=== PATIENT | female | born 1990 | race Caucasian/White ===

== ENCOUNTER → 2018-03-20 22:55 | Observation (INO) ==
[2018-03-20 22:09] LABS: Bilirubin,Urine Negative (Negative); Blood,Urine Large (Negative); Clarity,Urine Cloudy (Clear); Color,Urine Yellow (Yellow); Glucose,Urine (UA) Normal (Normal); Ketones,Urine 15 mg/dL (Negative); Leukocyte Esterase,Urine Trace (Negative); Nitrite,Urine Negative (Negative); PH,Urine 6.5 pH Units (5.0-8.0); Protein,Urine Negative (Neg-Trace); Specific Gravity,Urine 1.019 (1.010-1.025); Urobilinogen,Urine Normal (Normal)
[2018-03-20 22:10] LABS: Bacteria,Urine None Seen per hpf (None-Few); Hyaline Casts,Urine None Seen per lpf (None-Few); RBC,Urine TNTC per hpf (0-3); Squamous Epithelial Cell,Urine Many per lpf (None-Few)
[2018-03-20 22:21] LABS: Amphetamine Screen,Urine Negative ng/mL (Cutoff=1000); Barbiturate Screen,Urine Negative ng/mL (Cutoff=200); Benzodiazepines Screen,Urine Negative ng/mL (Cutoff=200); Cannabinoid Screen,Urine Positive ng/mL (Cutoff = 50); Cocaine Screen,Urine Negative ng/mL (Cutoff= 300); Opiate Screen,Urine Negative ng/mL (Cutoff=300); Phencyclidine Screen,Urine Negative ng/mL (Cutoff=25)
--- NOTE | 2018-03-20 22:52 | OB/GYN Progress Note ---
Date of Encounter: 03/20/18 Time of Encounter: 22:48 - Assessment and Plan (1) 26 weeks gestation of Current Visit: Yes Status: Acute Urine - normal UDS + marijuana Declined vaginal exam tracing appropriate for gestation Discharge home with PTL/ Bleeding precautions Follow up with regular OB provider within 7 days and PRN. (2) Vaginal spotting Current Visit: Yes Status: Acute Subjective - Subjective Principal diagnosis: Vaginal bleeding Interval history: Ms Lr is here with c/o vaginal spotting after intercourse. She states she has had no complications with this . She states she just wanted to make sure her baby was ok. She declines the vaginal exam stating she's bleeding because of the intercourse. She sees Dr Salvador at [place]. Antepartum ROS: new complaints, vaginal bleeding, movement normal, no loss of fluid, no contractions Objective - Exam FHR: auscultation normal, category 1 (baseline 150; reactive) Abdomen: Present: normal appearance, soft, gravid. Absent: tenderness Uterus: Present: normal. Absent: firm, bogginess, tenderness Comments: Declined pelvic / vaginal exam. - Labs Labs: Abnormal lab results Urine Clarity Cloudy (Clear) A 03/20/18 22:00 Urine Ketones 15 mg/dL (Negative) H 03/20/18 22:00 Urine Blood Large (Negative) H 03/20/18 22:00 Ur Leukocyte Esterase Trace (Negative) H 03/20/18 22:00 Urine Microscopic RBC TNTC per hpf (0-3) H 03/20/18 22:00 Urine Microscopic WBC 5-15 per hpf (0-3) H 03/20/18 22:00 Ur Squamous Epith Cells Many per lpf (None-Few) H 03/20/18 22:00 Ur Culture Indicated? NO. (NO) A 03/20/18 22:00 U Marijuana (THC) Screen Positive ng/mL (Cutoff = 50) H 03/20/18 22:00
== END | disposition home or self-care (01) ==
LOC: 1NENULAB
PROVIDERS: ADMIT Obstetrics & Gynecology; ATTEND Obstetrics & Gynecology

== ENCOUNTER 2018-04-19 18:29 | Observation (INO) ==
[2018-04-19 19:15] LABS: Bilirubin,Urine Negative (Negative); Blood,Urine Large (Negative); Clarity,Urine Cloudy (Clear); Color,Urine Dark Yellow (Yellow); Glucose,Urine (UA) Normal (Normal); Ketones,Urine 40 mg/dL (Negative); Leukocyte Esterase,Urine Small (Negative); Nitrite,Urine Negative (Negative); Protein,Urine 30 mg/dL (Neg-Trace); Specific Gravity,Urine 1.024 (1.010-1.025); Urobilinogen,Urine Normal (Normal)
[2018-04-19 19:17] LABS: Bacteria,Urine Few per hpf (None-Few); Hyaline Casts,Urine None Seen per lpf (None-Few); RBC,Urine TNTC per hpf (0-3); Squamous Epithelial Cell,Urine Many per lpf (None-Few)
[2018-04-19] MEDS ORDERED: 0.9 % Sodium Chloride 1,000 ML IVC ONE (19:43)
[2018-04-19] MEDS ORDERED: *HR* Morphine 2 MG/ML SYRINGE IVP ONE (19:53)
[2018-04-19 19:59] LABS: Basophils % 0.2 %; Eosinophils % 0.2 %; Hematocrit 37.4 % (35.3-44.9); Hemoglobin 12.6 g/dL (11.5-15.4); Immature Granulocytes % 0.5 % (0-4); Lymphocytes # 0.6 K/mcL (0.6-4.6); Lymphocytes % 5.5 %; Mean Corpuscular HGB Conc 33.7 g/dL (31.6-35.5); Mean Corpuscular Hemoglobin 31.3 pg (28.0-33.3); Mean Corpuscular Volume 92.8 fL (83.0-100.0); Mean Platelet Volume 8.3 fL (9.4-12.4); Monocytes # 0.7 K/mcL (0.0-1.3); Monocytes % 6.8 %; Neutrophils # 8.8 K/mcL (1.6-8.9); Platelet Count 250 K/mcL (140-400); Red Blood Count 4.03 M/mcL (3.82-4.97); Red Cell Distribution Width 14.1 % (11.5-14.5); Segmented Neutrophils % 86.8 %
[2018-04-19] MEDS ORDERED: Prochlorperazine 10 MG/2 ML VIAL IVP ONE (20:00)
[2018-04-19 20:19] LABS: Alanine Aminotransferase 12 Units/L (7-52); Albumin 3.4 g/dL (3.5-5.7); Albumin/Globulin Ratio 1.1 (1.1-2.2); Alkaline Phosphatase 126 Units/L (34-104); Aspartate Amino Transferase 17 Units/L (13-39); BUN/Creatinine Ratio 9 (6-26); Bilirubin,Direct 0.1 mg/dL (0.0-0.2); Bilirubin,Indirect 0.4 mg/dL (0.0-1.2); Bilirubin,Total 0.5 mg/dL (0.3-1.0); Blood Urea Nitrogen 7 mg/dL (6-20); Calcium 8.7 mg/dL (8.6-10.3); Carbon Dioxide 20 mEq/L (23-29); Chloride 104 mEq/L (98-107); Glucose 98 mg/dL (70-105); Osmolality,Calculated 274 (280-300); Potassium 4.3 mEq/L (3.5-5.1); Sodium 133 mEq/L (136-145); Total Protein 6.4 g/dL (6.4-8.9); eGFR For African Americans > 60 (> 60); eGFR For Non-African Americans > 60 (> 60)
--- NOTE | 2018-04-19 21:25 | Emergency Department Note ---
Disposition Clinical Impression: Left flank pain Hydronephrosis Qualifiers: Hydronephrosis type: unspecified Qualified Code(s): N13.30 - Unspecified hydronephrosis Disposition: Still a Patient Condition: Fair Referrals: NONE,PCP [Primary Care Provider] - Abdominal Pain HPI - General Chief Complaint: ED Abdominal Pain Stated Complaint: , flank pain Time Seen by Provider: 04/19/18 18:34 Source: patient Mode of arrival: ambulatory Limitations: no limitations Nursing Notes Reviewed: Yes Vital Signs Reviewed: Yes - History of Present Illness HPI Narrative: 27 yo female with past medical history of kidney stones, BMI of 61.6, presents to the emergency department c/o acute flank pain that started 2-3 days ago and is worsening. It is located in her left flank and radiates anteriorly. She is having nausea and vomiting with anorexia and has not taken her temp at home. She denies gross blood in the urine. She denies abdominal pain, chest pain , shortness of breath or palpitations. Pain Scale: 9 - Related Data Previous Rx's Medication Instructions Recorded Vit Calc,Iron,Folic 1 each PO DAILY #90 tablet 10/24/17 [ Vitamins] Allergies Allergy/AdvReac Type Severity Reaction Status Date / Time lamotrigine [From Lamictal] Allergy Rash Verified 03/20/18 21:59 Constitutional: Denies: fever, weakness, weight change Eyes: Denies: eye pain, eye discharge, vision change ENT ED: Denies: ear pain, throat pain, dental pain, hearing loss, epistaxis, congestion, dysphagia Cardiovascular: Denies: chest pain, palpitations, dyspnea on exertion, edema, syncope Respiratory: Denies: cough, dyspnea, wheezes, hemoptysis, stridor Gastrointestinal: Reports: nausea, vomiting. Denies: abdominal pain, diarrhea, constipation, hematemesis, melena, hematochezia Genitourinary: Denies: dysuria, frequency, hematuria, discharge Integumentary: Denies: rash, abrasion, lesions Neurological: Reports: headache. Denies: weakness, numbness, paresthesias, confusion Abdominal Pain PMH - Past Medical History Medical history: Reports: asthma, kidney stones Female Surgical History: Reports: appendectomy, Tonsillectomy TELECOM FIELD TECHNICIAN history: Reports: no TELECOM FIELD TECHNICIAN history Psychiatric history: Reports: anxiety, bipolar, depression - Social History Smoking status: Current every day smoker Alcohol use: Reports: none Drug use: Reports: none Physical Exam - General Limitations: no limitations General appearance: alert - Head Head exam: atraumatic, normocephalic, normal inspection - Eye Eye exam: Present: normal appearance, PERRL, EOMI - ENT ENT exam: normal exam, normal oropharynx, mucous membranes moist - Neck Neck exam: Present: normal inspection, trachea midline - Chest Chest inspection: Present: normal inspection, symmetric chest wall rise - Respiratory Respiratory exam: Present: normal lung sounds bilaterally - Cardiovascular Cardiovascular exam: Present: regular rate, normal rhythm, normal heart sounds - Abdominal Exam Abdominal exam: Present: soft, Non-Tender. Absent: tenderness, distention, guarding, rebound, rigidity - Back Exam Back exam: Present: CVA tenderness (L) - Neurological Exam Neurological exam: Present: alert, oriented X3 Course Course Narrative: Pt seen and evaluated at bedside. She demonstrates significant discomfort due to her flank pain. She has significant CVA tenderness. She tells me that her current sx feel like prior episode of kidney stones Vital Signs Temperature 98.5 F 04/19/18 18:34 Pulse Rate 130 04/19/18 18:34 Respiratory Rate 18 04/19/18 18:34 Blood Pressure 127/91 04/19/18 18:34 O2 Sat by Pulse Oximetry 95 04/19/18 18:34 Temperature 0 F L 04/19/18 20:36 Pulse Rate 127 04/19/18 20:36 Respiratory Rate 16 04/19/18 20:36 Blood Pressure 141/82 04/19/18 20:36 O2 Sat by Pulse Oximetry 98 04/19/18 20:36 Oxygen Delivery Oxygen Delivery Room Air Abdominal Pain - [facility] Narrative Medical decision making narrative: Clinical picture concerning for nephrolithiasis, she is 30 weeks so we will take care to avoid modalities that may endanger the fetus. We will obtain an ultrasound of her kidney / ureter and provide her medication for nausea and pain . US shows hydronephrosis. We will contact OB service to request admission - Lab Data Lab results reviewed: Yes I reviewed the patient's lab results. Result diagrams: 04/19/18 19:02 04/19/18 19:02 Lab Results 04/19/18 04/19/18 04/19/18 Range/Units 18:56 19:02 19:02 WBC 10.2 (4.3-11.1) K/mcL RBC 4.03 (3.82-4.97) M/mcL Hgb 12.6 (11.5-15.4) g/dL Hct 37.4 (35.3-44.9) % MCV 92.8 (83.0-100.0) fL MCH 31.3 (28.0-33.3) pg MCHC 33.7 (31.6-35.5) g/dL RDW 14.1 (11.5-14.5) % Plt Count 250 (140-400) K/mcL MPV 8.3 L (9.4-12.4) fL Immature Gran % 0.5 (0-4) % Seg Neutrophils % 86.8 % Lymphocytes % 5.5 % Monocytes % 6.8 % Eosinophils % 0.2 % Basophils % 0.2 % Neutrophils # 8.8 (1.6-8.9) K/mcL Lymphocytes # 0.6 (0.6-4.6) K/mcL Monocytes # 0.7 (0.0-1.3) K/mcL Eosinophils # 0.0 (0.0-0.6) K/mcL Basophils # 0.0 (0.0-0.2) K/mcL Sodium 133 L (136-145) mEq/L Potassium 4.3 (3.5-5.1) mEq/L Chloride 104 (98-107) mEq/L Carbon Dioxide 20 L (23-29) mEq/L BUN 7 (6-20) mg/dL Creatinine 0.74 (0.60-1.20) mg/dL Est GFR ( Amer) > 60 (> 60) Est GFR (Non-Af Amer) > 60 (> 60) BUN/Creatinine Ratio 9 (6-26) Glucose 98 (70-105) mg/dL Calculated Osmolality 274 L (280-300) Calcium 8.7 (8.6-10.3) mg/dL Total Bilirubin 0.5 (0.3-1.0) mg/dL Direct Bilirubin 0.1 (0.0-0.2) mg/dL Indirect Bilirubin 0.4 (0.0-1.2) mg/dL AST 17 (13-39) Units/L ALT 12 (7-52) Units/L Alkaline Phosphatase 126 H (34-104) Units/L Serum Total Protein 6.4 (6.4-8.9) g/dL Albumin 3.4 L (3.5-5.7) g/dL Globulin 3.0 (2.4-3.5) g/dL Albumin/Globulin Ratio 1.1 (1.1-2.2) Urine Color Dark Yellow (Yellow) Urine Clarity Cloudy A (Clear) Urine pH 7.0 (5.0-8.0) pH Units Ur Specific [place] 1.024 (1.010-1.025) Urine Protein 30 H (Neg-Trace) mg/dL Urine Glucose (UA) Normal (Normal) mg/dL Urine Ketones 40 H (Negative) mg/dL Urine Blood Large H (Negative) Urine Nitrite Negative (Negative) Urine Bilirubin Negative (Negative) Urine Urobilinogen Normal (Normal) mg/dL Ur Leukocyte Esterase Small H (Negative) Urine Microscopic RBC TNTC H (0-3) per hpf Urine Microscopic WBC 5-15 H (0-3) per hpf Ur Squamous Epith Cells Many H (None-Few) per lpf Urine Bacteria Few (None-Few) per hpf Hyaline Casts None Seen (None-Few) per lpf Ur Culture Indicated? NO. A (NO) - Radiology Data Radiology results reviewed: Yes I reviewed the patient's radiology results.
[2018-04-19] MEDS ORDERED: cefTRIAXone 1,000 MG in Water for inj. (sterile) 20 ML 10 ML IVP ONE (22:01)
--- NOTE | 2018-04-19 22:14 | Emergency Department Note ---
Disposition Clinical Impression: Flank pain, acute, Left flank pain Hydronephrosis Qualifiers: Hydronephrosis type: unspecified Qualified Code(s): N13.30 - Unspecified hydronephrosis Disposition: Admitted As Inpatient Condition: Fair Referrals: NONE,PCP [Primary Care Provider] - Forms: ED Satisfaction Letter, Work/School Release Time of Disposition: 22:39 General Adult HPI - General Chief complaint: ED Abdominal Pain Stated complaint: , flank pain Time Seen by Provider: 04/19/18 18:34 Source: patient Mode of arrival: ambulatory Limitations: no limitations - History of Present Illness Pain Scale: 9 - Related Data Previous Rx's Medication Instructions Recorded Vit Calc,Iron,Folic 1 each PO DAILY #90 tablet 10/24/17 [ Vitamins] Allergies Allergy/AdvReac Type Severity Reaction Status Date / Time lamotrigine [From Lamictal] Allergy Rash Verified 03/20/18 21:59 Constitutional: Denies: fever, weakness, weight change Eyes: Denies: eye pain, eye discharge, vision change ENT ED: Denies: ear pain, throat pain, dental pain, hearing loss, epistaxis, congestion, dysphagia Cardiovascular: Denies: chest pain, palpitations, dyspnea on exertion, edema, syncope Respiratory: Denies: cough, dyspnea, wheezes, hemoptysis, stridor Gastrointestinal: Reports: nausea, vomiting. Denies: abdominal pain, diarrhea, constipation, hematemesis, melena, hematochezia Genitourinary: Denies: dysuria, frequency, hematuria, discharge Integumentary: Denies: rash, abrasion, lesions Neurological: Reports: headache. Denies: weakness, numbness, paresthesias, confusion Past Medical History - Past Medical History Medical history: Reports: asthma, kidney stones Surgical history: Reports: appendectomy, other Psychiatric history: Reports: anxiety, bipolar, depression CURRICULUM ADVISORY TEACHER history: Reports: no CURRICULUM ADVISORY TEACHER history - Social History Smoking Status: Current every day smoker Smokeless Tobacco Status: No Alcohol use: Reports: none Drug use: Reports: none Physical Exam - General Limitations: no limitations General appearance: alert Course Vital Signs Temperature 98.5 F 04/19/18 18:34 Pulse Rate 130 04/19/18 18:34 Respiratory Rate 18 04/19/18 18:34 Blood Pressure 127/91 04/19/18 18:34 O2 Sat by Pulse Oximetry 95 04/19/18 18:34 Temperature 0 F L 04/19/18 20:36 Pulse Rate 132 04/19/18 22:17 Respiratory Rate 20 04/19/18 22:17 Blood Pressure 143/90 04/19/18 22:17 O2 Sat by Pulse Oximetry 99 04/19/18 22:17 Oxygen Delivery Oxygen Delivery Room Air Medical Decision Making - Lab Data Result diagrams: 04/19/18 19:02 04/19/18 19:02 Lab Results 04/19/18 04/19/18 04/19/18 Range/Units 18:56 19:02 19:02 WBC 10.2 (4.3-11.1) K/mcL RBC 4.03 (3.82-4.97) M/mcL Hgb 12.6 (11.5-15.4) g/dL Hct 37.4 (35.3-44.9) % MCV 92.8 (83.0-100.0) fL MCH 31.3 (28.0-33.3) pg MCHC 33.7 (31.6-35.5) g/dL RDW 14.1 (11.5-14.5) % Plt Count 250 (140-400) K/mcL MPV 8.3 L (9.4-12.4) fL Immature Gran % 0.5 (0-4) % Seg Neutrophils % 86.8 % Lymphocytes % 5.5 % Monocytes % 6.8 % Eosinophils % 0.2 % Basophils % 0.2 % Neutrophils # 8.8 (1.6-8.9) K/mcL Lymphocytes # 0.6 (0.6-4.6) K/mcL Monocytes # 0.7 (0.0-1.3) K/mcL Eosinophils # 0.0 (0.0-0.6) K/mcL Basophils # 0.0 (0.0-0.2) K/mcL Sodium 133 L (136-145) mEq/L Potassium 4.3 (3.5-5.1) mEq/L Chloride 104 (98-107) mEq/L Carbon Dioxide 20 L (23-29) mEq/L BUN 7 (6-20) mg/dL Creatinine 0.74 (0.60-1.20) mg/dL Est GFR ( Amer) > 60 (> 60) Est GFR (Non-Af Amer) > 60 (> 60) BUN/Creatinine Ratio 9 (6-26) Glucose 98 (70-105) mg/dL Calculated Osmolality 274 L (280-300) Calcium 8.7 (8.6-10.3) mg/dL Total Bilirubin 0.5 (0.3-1.0) mg/dL Direct Bilirubin 0.1 (0.0-0.2) mg/dL Indirect Bilirubin 0.4 (0.0-1.2) mg/dL AST 17 (13-39) Units/L ALT 12 (7-52) Units/L Alkaline Phosphatase 126 H (34-104) Units/L Serum Total Protein 6.4 (6.4-8.9) g/dL Albumin 3.4 L (3.5-5.7) g/dL Globulin 3.0 (2.4-3.5) g/dL Albumin/Globulin Ratio 1.1 (1.1-2.2) Urine Color Dark Yellow (Yellow) Urine Clarity Cloudy A (Clear) Urine pH 7.0 (5.0-8.0) pH Units Ur Specific [place] 1.024 (1.010-1.025) Urine Protein 30 H (Neg-Trace) mg/dL Urine Glucose (UA) Normal (Normal) mg/dL Urine Ketones 40 H (Negative) mg/dL Urine Blood Large H (Negative) Urine Nitrite Negative (Negative) Urine Bilirubin Negative (Negative) Urine Urobilinogen Normal (Normal) mg/dL Ur Leukocyte Esterase Small H (Negative) Urine Microscopic RBC TNTC H (0-3) per hpf Urine Microscopic WBC 5-15 H (0-3) per hpf Ur Squamous Epith Cells Many H (None-Few) per lpf Urine Bacteria Few (None-Few) per hpf Hyaline Casts None Seen (None-Few) per lpf Ur Culture Indicated? NO. A (NO) Attestation Statement - Attestation Attestation: I examined this patient and my medical decision-making was reviewed with the Resident Physician. I agree with the documented findings, disposition and treatment plan as described except to the extent set forth below. 27-year-old female presented to the emergency room for left flank pain. She also complaining of left lower back pain. She states it radiates around to the left side of her abdomen. His been present for 5 days. Worse today. Urinalysis showed evidence of hematuria. Concerns with her being 30 weeks for possible kidney stone. We did an ultrasound which showed moderate left-sided hydronephrosis. They did not visualize any obvious stone. She denies any vaginal bleeding or discharge. Still awaiting the official OB ultrasound report. Patient will need to be admitted to OB and consult with urology. Her CURRICULUM ADVISORY TEACHER is at [facility] however she would like to be admitted here and they do not have any urology coverage at that facility. We will consult with OB. I started her on IV Rocephin. She has had no further vomiting after the Compazine and her pain is more under control with the morphine.
[2018-04-19] MEDS: Ringers Solution, Lactated 1,000 ML IVC SCH (23:48)
[2018-04-19] MEDS ORDERED: Ondansetron 4 MG/2 ML VIAL IVP PRN (23:54)
[2018-04-19] MEDS ORDERED: *HR* HYDROcodone/Acet 5/325 mg TABLET PO PRN (23:54)
[2018-04-19] MEDS ORDERED: Acetaminophen 325 MG TABLET PO PRN (23:54)
[2018-04-20] MEDS: Gentamicin 160 MG in 0.9 % Sodium Chloride 100 ML IVPB SCH ×3 (00:23→17:54)
--- NOTE | 2018-04-20 00:37 | OB/GYN History & Physical ---
Date of Encounter: 04/20/18 Time of Encounter: 00:31 Assessment and Plan (1) 30 weeks gestation of Current visit: Yes Status: Acute (2) Hydronephrosis Current visit: Yes Status: Acute Admit to observation Consult to urology Antibiotics as ordered Tylenol for fever Dr. Bae aware of POC and agrees Qualifiers: Hydronephrosis type: unspecified Qualified Code(s): N13.30 - Unspecified hydronephrosis History of Present Illness Chief complaint: moderate hydronephrosis HPI: Ms. Lr is a 27 year old female at 30 weeks 5 days gestation with an estimated date of of 06/22/2018. She reports a 5 day history of left flank pain. She endorses good movement and denies contractions, vaginal bleeding, leakage of fluid. She denies dysuria. She reports her blood pressures have been stable throughout her . She sees Dr. Salvador for OB care and records are pending. Her has been complicated by morbid obesity. Past Med Surg Social Fam HX - Past Medical History Medical history: asthma, kidney stones Additional medical history: enlarged liver per pt. um Psychiatric history: anxiety, bipolar, depression - Past Surgical History Surgical History: appendectomy, other Additional surgical history: vaginal delivery 2009 ,2012 - Social History Smoking Status: Current every day smoker Packs per day: 1/2 Smokeless Tobacco Status: No Alcohol use: none Drug use: none - Family History Mother Adopted: Mallory: NICHOLE SCHULTE Family Member Ethnicity: Non- Living Status: Age at : 59 Hx Family Cardiac Disorders: No Hx Family Respiratory Disorders: Yes (COPD) Hx Family Cancer: No Hx Family GI Disorders: No Hx Family Genitourinary Disorders: No Hx Family Endocrine Disorder: No Hx Family Musculoskeletal Disorders: No Hx Family Neuromuscular Disorders: No Hx Family Neurologic Disorders: No Hx Family HEENT Disorders: No Hx Family Autoimmune Disorders: No Hx Family Reproductive Disorders: No Hx Family Psychosocial Disorders: No Hx Family Medical Disorders: No Obstetrical History - Pregnancies : 4 Para: 3 Term: 3 : 0 Ab's: 0 Livin Medications and Allergies Vit Calc,Iron,Folic [ Vitamins] 1 each PO DAILY #90 tablet 02/05 [Rx] 3 Allergy/AdvReac Type Severity Reaction Status Date / Time lamotrigine [From Lamictal] Allergy Rash Verified 03/20/18 21:59 Review of System OB All systems PM: reviewed and no additional remarkable complaints except as stated - Constitutional Constitutional ROS IM: fever(s), lethargy, malaise - Genitourinary Genitourinary: flank pain (left), no change in urinary stream, no difficulty urinating, no difficulty voiding, no dysuria, no nocturia, no pelvic pain, no post void dribbling, no urinary frequency, no urinary hesitancy, no urinary incontinence, no urinary urgency Exam - Vital Signs Vital signs: Initial Vital Signs Temp Pulse Resp BP Pulse Ox 98.5 F 130 18 127/91 95 04/19/18 18:34 04/19/18 18:34 04/19/18 18:34 04/19/18 18:34 04/19/18 18:34 - Constitutional Constitutional: well developed, well nourished, moderate distress, morbidly obese - HEENT HEENT: PERRL, Normocephaly, Mucus Membranes Moist - Neck Neck exam: full ROM - Lungs Respiratory exam: wheezes (expiratory) - Cardiovascular Cardiovascular exam: RRR, +S1, +S2 - Breasts Breast: bilateral: normal - Abdomen Abdomen: Present: bowel sounds normal, gravid - Extremities Extremities exam: normal capillary refill, normal inspection, pedal edema, radial pulses palpable and symmetrical - Uterus Uterus exam: Present: normal size, normal contour Results Result Diagrams: 04/19/18 19:02 04/19/18 19:02 Abnormal lab results MPV 8.3 fL (9.4-12.4) L 04/19/18 19:02 Sodium 133 mEq/L (136-145) L 04/19/18 19:02 Carbon Dioxide 20 mEq/L (23-29) L 04/19/18 19:02 Calculated Osmolality 274 (280-300) L 04/19/18 19:02 Alkaline Phosphatase 126 Units/L (34-104) H 04/19/18 19:02 Albumin 3.4 g/dL (3.5-5.7) L 04/19/18 19:02 Urine Clarity Cloudy (Clear) A 04/19/18 18:56 Urine Protein 30 mg/dL (Neg-Trace) H 04/19/18 18:56 Urine Ketones 40 mg/dL (Negative) H 04/19/18 18:56 Urine Blood Large (Negative) H 04/19/18 18:56 Ur Leukocyte Esterase Small (Negative) H 04/19/18 18:56 Urine Microscopic RBC TNTC per hpf (0-3) H 04/19/18 18:56 Urine Microscopic WBC 5-15 per hpf (0-3) H 04/19/18 18:56 Ur Squamous Epith Cells Many per lpf (None-Few) H 04/19/18 18:56 Ur Culture Indicated? NO. (NO) A 04/19/18 18:56 All other labs normal. - VTE Reasons for not Prescribing Prophylaxis: Treatment not Indicated - Low risk for VTE
--- NOTE | 2018-04-20 01:22 | OB/GYN Progress Note ---
Date of Encounter: 04/20/18 Time of Encounter: 01:20 - Assessment and Plan (1) 30 weeks gestation of Current Visit: Yes Status: Acute (2) Hydronephrosis Current Visit: Yes Status: Acute Admit to observation versus transfer to [facility] for tachycardia Consult to urology Antibiotics as ordered Tylenol for fever Qualifiers: Hydronephrosis type: unspecified Qualified Code(s): N13.30 - Unspecified hydronephrosis Subjective - Subjective Interval history: Patient reports she is feeling very hot and sweaty. Fan offered and accepted. Temperature reduced in room. Antepartum ROS: movement normal, no loss of fluid, no vaginal bleeding, no contractions Objective - Vital Signs Vital Signs: Vital Signs Temp Pulse Resp BP Pulse Ox 04/20/18 00:35 102.5 F H 128 30 91/47 98 04/19/18 23:35 102.8 F H 134 14 108/64 97 04/19/18 23:19 20 157/64 Intake and Output 04/19/18 04/19/18 04/20/18 15:59 23:59 07:59 Other: Weight 176.6 kg - Exam FHR: category 2 FHR comments: Baseline 180 Moderate variability Accelerations present 10 x 10 Few variable decelerations FHR category II No toco activity Auscultation: bilateral: wheezes Abdomen: Present: soft, gravid Uterus: Present: normal - Labs Labs: Abnormal lab results MPV 8.3 fL (9.4-12.4) L 04/19/18 19:02 Sodium 133 mEq/L (136-145) L 04/19/18 19:02 Carbon Dioxide 20 mEq/L (23-29) L 04/19/18 19:02 Calculated Osmolality 274 (280-300) L 04/19/18 19:02 Alkaline Phosphatase 126 Units/L (34-104) H 04/19/18 19:02 Albumin 3.4 g/dL (3.5-5.7) L 04/19/18 19:02 Urine Clarity Cloudy (Clear) A 04/19/18 18:56 Urine Protein 30 mg/dL (Neg-Trace) H 04/19/18 18:56 Urine Ketones 40 mg/dL (Negative) H 04/19/18 18:56 Urine Blood Large (Negative) H 06/30/18 18:56 Ur Leukocyte Esterase Small (Negative) H 04/19/18 18:56 Urine Microscopic RBC TNTC per hpf (0-3) H 04/19/18 18:56 Urine Microscopic WBC 5-15 per hpf (0-3) H 04/19/18 18:56 Ur Squamous Epith Cells Many per lpf (None-Few) H 04/19/18 18:56 Ur Culture Indicated? NO. (NO) A 04/19/18 18:56
--- NOTE | 2018-04-20 02:05 | OB/GYN Progress Note ---
Date of Encounter: 04/20/18 Time of Encounter: 02:03 - Assessment and Plan (1) 30 weeks gestation of Current Visit: Yes Status: Acute NST every shift (2) Hydronephrosis Current Visit: Yes Status: Acute Continue antibiotic therapy Morning labs Consult urology in a.m. Qualifiers: Hydronephrosis type: unspecified Qualified Code(s): N13.30 - Unspecified hydronephrosis Subjective - Subjective Interval history: Patient reports that she is feeling much better now. She states that her left flank pain is completely resolved. Antepartum ROS: movement normal, no new complaints Objective - Vital Signs Vital Signs: Vital Signs Temp Pulse Resp BP Pulse Ox 04/20/18 00:35 102.5 F H 128 30 91/47 98 04/19/18 23:35 102.8 F H 134 14 108/64 97 04/19/18 23:19 20 157/64 Intake and Output 04/19/18 04/19/18 04/20/18 15:59 23:59 07:59 Other: Weight 176.6 kg - Exam FHR: auscultation normal (170s-decreased from 190s earlier) Auscultation: bilateral: wheezes Abdomen: Present: soft, gravid Uterus: Present: normal, firm - Labs Labs: Abnormal lab results MPV 8.3 fL (9.4-12.4) L 04/19/18 19:02 Sodium 133 mEq/L (136-145) L 04/19/18 19:02 Carbon Dioxide 20 mEq/L (23-29) L 04/19/18 19:02 Calculated Osmolality 274 (280-300) L 04/19/18 19:02 Alkaline Phosphatase 126 Units/L (34-104) H 04/19/18 19:02 Albumin 3.4 g/dL (3.5-5.7) L 04/19/18 19:02 Urine Clarity Cloudy (Clear) A 04/19/18 18:56 Urine Protein 30 mg/dL (Neg-Trace) H 04/19/18 18:56 Urine Ketones 40 mg/dL (Negative) H 04/19/18 18:56 Urine Blood Large (Negative) H 04/19/18 18:56 Ur Leukocyte Esterase Small (Negative) H 04/19/18 18:56 Urine Microscopic RBC TNTC per hpf (0-3) H 04/19/18 18:56 Urine Microscopic WBC 5-15 per hpf (0-3) H 04/19/18 18:56 Ur Squamous Epith Cells Many per lpf (None-Few) H 04/19/18 18:56 Ur Culture Indicated? NO. (NO) A 04/19/18 18:56
[2018-04-20] MEDS ORDERED: Famotidine 20 MG/2 ML VIAL IVP ONE (04:20)
[2018-04-20 06:20] LABS: Basophils % 0.1 %; Hematocrit 33.3 % (35.3-44.9); Hemoglobin 11.5 g/dL (11.5-15.4); Immature Granulocytes % 0.9 % (0-4); Lymphocytes # 0.7 K/mcL (0.6-4.6); Lymphocytes % 6.1 %; Mean Corpuscular HGB Conc 34.5 g/dL (31.6-35.5); Mean Corpuscular Hemoglobin 31.4 pg (28.0-33.3); Mean Platelet Volume 8.4 fL (9.4-12.4); Monocytes % 8.8 %; Neutrophils # 9.8 K/mcL (1.6-8.9); Platelet Count 214 K/mcL (140-400); Red Blood Count 3.66 M/mcL (3.82-4.97); Red Cell Distribution Width 14.3 % (11.5-14.5); Segmented Neutrophils % 84.1 %
[2018-04-20 07:01] VITALS: BP 116/56
--- NOTE | 2018-04-20 08:58 | Urology - Consult Note ---
Date of Encounter: 04/20/18 Time of Encounter: 08:56 - Assessment and Plan (1) Pyelonephritis affecting Current Visit: Yes Status: Acute Assessment and plan: Patient likely has pyonephritis affecting her left kidney. This goes along with her improvement with IV fluids and IV antibiotics as well as her urinalysis. Urine culture still pending. Blood cultures were negative at this time recommend to continue appropriate antibiotics. Qualifiers: Trimester: third trimester Qualified Code(s): O23.03 - Infections of kidney in , third trimester (2) Hydronephrosis Current Visit: Yes Status: Acute Assessment and plan: Likely secondary to as well as pyelonephritis. Patient states her pain is improving. This unlikely to be secondary to a distal ureteral stone. If patient's pain fails to resolve or worsens patient may need further imaging or intervention which would have to be performed at a tertiary care center Qualifiers: Hydronephrosis type: unspecified Qualified Code(s): N13.30 - Unspecified hydronephrosis (3) Left flank pain Current Visit: Yes Status: Acute Assessment and plan: Likely secondary to pyelonephritis. Improving at this time Urology CN:HPI Consult date: 04/20/18 Reason for consult Urology: Hydronephrosis Requesting physician: Myra Kasper History of present illness: Gwendolyn is a 30 week female with a history of severe left-sided flank pain. Patient also with fevers at home. Patient states her pain was a 10 out of 10 in nature. She did have some radiation from her left flank toward her left groin. Patient also with febrile episodes overnight. She did have a renal ultrasound performed which showed mild to moderate left-sided hydronephrosis without any obvious shadowing defect that would be consistent with a stone. Patient denies any current nausea or vomiting. She does have a history of kidney stones and had a CT scan in 2016 which revealed a proximal left 2-3 mm stone which the patient states that she passed on her own. Past Med Surg Social Fam HX - Past Medical History Medical history: asthma, kidney stones Additional medical history: enlarged liver per pt. um Psychiatric history: anxiety, bipolar, depression - Past Surgical History Surgical History: appendectomy, other Additional surgical history: vaginal delivery 2009 ,2012 - Social History Smoking Status: Current every day smoker Packs per day: 1/2 Smokeless Tobacco Status: No Alcohol use: none Drug use: none - Family History Mother Adopted: [place]: NICHOLE SCHULTE Family Member Ethnicity: Non- Living Status: Age at : 59 Hx Family Cardiac Disorders: No Hx Family Respiratory Disorders: Yes (COPD) Hx Family Cancer: No Hx Family GI Disorders: No Hx Family Genitourinary Disorders: No Hx Family Endocrine Disorder: No Hx Family Musculoskeletal Disorders: No Hx Family Neuromuscular Disorders: No Hx Family Neurologic Disorders: No Hx Family HEENT Disorders: No Hx Family Autoimmune Disorders: No Hx Family Reproductive Disorders: No Hx Family Psychosocial Disorders: No Hx Family Medical Disorders: No Medications and Allergies Vit Calc,Iron,Folic [ Vitamins] 1 each PO DAILY #90 tablet 02/05 [Rx] 3 Allergy/AdvReac Type Severity Reaction Status Date / Time lamotrigine [From Lamictal] Allergy Rash Verified 03/20/18 21:59 Review of Systems - EENT Nose, mouth and throat: no dizziness, no sore throat, no throat swelling - Cardiovascular no chest pain, no dyspnea - Respiratory no cough, no dyspnea - Gastrointestinal no abdominal pain, no nausea, no vomiting - Genitourinary Genitourinary: flank pain, no dysuria, no nocturia - Musculoskeletal back pain - Integumentary no erythema, no swelling, no unusual bruising - Neurological no confusion, no sensory deficit - Psychiatric no confusion, no depression Exam Initial Vital Signs Temp Pulse Resp BP Pulse Ox 98.5 F 130 18 127/91 95 04/19/18 18:34 04/19/18 18:34 04/19/18 18:34 04/19/18 18:34 04/19/18 18:34 General/Neuological: alert and oriented x 3 Eyes: normal pupils, non-icteric Neck: no lymphadenopathy noted, supple to touch Cardiovascular: RRR, no murmurs Respiratory: normal respiratory effort, clear bilaterally ABD: Morbidly obese and gravid abdomen soft, nontender, no masses palpated, good bowel sounds Back: no pain on percussion bilaterally, spine straight on exam Skin: no rashes noted Musculoskeletal: normal gait, FROMx4 Urology Results - Labs 04/20/18 04:00 04/19/18 19:02 Abnormal lab results WBC 11.7 K/mcL (4.3-11.1) H 04/20/18 04:00 RBC 3.66 M/mcL (3.82-4.97) L 04/20/18 04:00 Hct 33.3 % (35.3-44.9) L 04/20/18 04:00 MPV 8.4 fL (9.4-12.4) L 04/20/18 04:00 Neutrophils # 9.8 K/mcL (1.6-8.9) H 04/20/18 04:00 Sodium 133 mEq/L (136-145) L 04/19/18 19:02 Carbon Dioxide 20 mEq/L (23-29) L 04/19/18 19:02 Calculated Osmolality 274 (280-300) L 04/19/18 19:02 Alkaline Phosphatase 126 Units/L (34-104) H 04/19/18 19:02 Albumin 3.4 g/dL (3.5-5.7) L 04/19/18 19:02 Urine Clarity Cloudy (Clear) A 04/19/18 18:56 Urine Protein 30 mg/dL (Neg-Trace) H 04/19/18 18:56 Urine Ketones 40 mg/dL (Negative) H 04/19/18 18:56 Urine Blood Large (Negative) H 04/19/18 18:56 Ur Leukocyte Esterase Small (Negative) H 04/19/18 18:56 Urine Microscopic RBC TNTC per hpf (0-3) H 04/19/18 18:56 Urine Microscopic WBC 5-15 per hpf (0-3) H 04/19/18 18:56 Ur Squamous Epith Cells Many per lpf (None-Few) H 04/19/18 18:56 Ur Culture Indicated? NO. (NO) A 04/19/18 18:56 All other labs normal. - Imaging US - abdomen: image reviewed Consult Discharge Plan - Plan Referrals: NONE,PCP [Primary Care Provider] -
[2018-04-20] MEDS: Ringers Solution, Lactated 1,000 ML IVC SCH (09:53)
[2018-04-20] MEDS ORDERED: *HR* HYDROcodone/Acet 5/325 mg TABLET PO ONE (15:21)
[2018-04-20] MEDS ORDERED: *HR* HYDROcodone/Acet 5/325 mg TABLET PO PRN (17:50)
--- NOTE | 2018-04-20 18:02 | OB/GYN Progress Note ---
Date of Encounter: 04/20/18 Time of Encounter: 10:00 - Assessment and Plan (1) 30 weeks gestation of Current Visit: Yes Status: Acute NST every shift (2) Hydronephrosis Current Visit: Yes Status: Acute Continue antibiotic therapy Continue tylenol therapy for fevers [place] for pain Likely discharge home tomorrow Dr. Huddleston aware of POC and agrees Qualifiers: Hydronephrosis type: unspecified Qualified Code(s): N13.30 - Unspecified hydronephrosis Subjective - Subjective Interval history: Ms. Lr reports she is feeling much better this morning. Flank pain has resolved and she is no longer sweating from fever. Antepartum ROS: movement normal, no new complaints Objective - Vital Signs Vital Signs: Vital Signs Temp Pulse Resp BP Pulse Ox 04/20/18 06:55 100.1 F H 122 16 116/56 97 04/20/18 04:30 100.6 F H 134 18 127/60 97 04/20/18 02:00 100.2 F H 127 18 112/54 98 04/20/18 01:00 102.5 F H 129 16 112/54 97 04/20/18 00:35 102.5 F H 128 30 91/47 98 04/19/18 23:35 102.8 F H 134 14 108/64 97 04/19/18 23:19 20 157/64 Intake and Output 04/20/18 04/20/18 04/20/18 07:59 15:59 23:59 Intake Total 1104 / 1104 104 / 104 Balance 1104 / 1104 104 / 104 Intake: IV Fluids 1104 / 1104 104 / 104 Lactated Ringers 1,000 ML @ 125 1000 / 1000 mls/hr IVC .Q8H [facility] Rx#: [id number] Gentamicin 160 MG In 0.9 % 104 / 104 104 / 104 Sodium Chloride 100 ML @ 100 mls/hr IVPB Q8H E[facility]NE[facility] Rx#: [id number] - Exam FHR: category 1 FHR comments: Baseline 150 Moderate variability Accelerations present 10x10 No decelerations FHR Category I No toco activity Auscultation: bilateral: normal Abdomen: Present: normal appearance, soft, gravid Uterus: Present: normal, firm - Labs Labs: Abnormal lab results WBC 11.7 K/mcL (4.3-11.1) H 04/20/18 04:00 RBC 3.66 M/mcL (3.82-4.97) L 04/20/18 04:00 Hct 33.3 % (35.3-44.9) L 04/20/18 04:00 MPV 8.4 fL (9.4-12.4) L 04/20/18 04:00 Neutrophils # 9.8 K/mcL (1.6-8.9) H 04/20/18 04:00 Sodium 133 mEq/L (136-145) L 04/19/18 19:02 Carbon Dioxide 20 mEq/L (23-29) L 04/19/18 19:02 Calculated Osmolality 274 (280-300) L 04/19/18 19:02 Alkaline Phosphatase 126 Units/L (34-104) H 04/19/18 19:02 Albumin 3.4 g/dL (3.5-5.7) L 04/19/18 19:02 Urine Clarity Cloudy (Clear) A 04/19/18 18:56 Urine Protein 30 mg/dL (Neg-Trace) H 04/19/18 18:56 Urine Ketones 40 mg/dL (Negative) H 04/19/18 18:56 Urine Blood Large (Negative) H 04/19/18 18:56 Ur Leukocyte Esterase Small (Negative) H 04/19/18 18:56 Urine Microscopic RBC TNTC per hpf (0-3) H 04/19/18 18:56 Urine Microscopic WBC 5-15 per hpf (0-3) H 04/19/18 18:56 Ur Squamous Epith Cells Many per lpf (None-Few) H 04/19/18 18:56 Ur Culture Indicated? NO. (NO) A 04/19/18 18:56
--- NOTE | 2018-04-20 20:23 | Discharge Summary ---
Date of Encounter: 04/20/18 Time of Encounter: 20:22 - Discharge Diagnosis (1) 30 weeks gestation of Priority: Secondary Status: Acute Comments: Follow up with Dr. Salvador this week and prn labor precautions given Discharge home (2) Pyelonephritis affecting Priority: Primary Status: Acute Comments: Rocephin IV now Start keflex po tomorrow norco as needed for pain tylenol for fever return for intractable fever or pain Qualifiers: Trimester: third trimester Qualified Code(s): O23.03 - Infections of kidney in , third trimester - Discharge Medications Prescriptions: Cephalexin [Keflex] 500 mg PO TID #20 capsule HYDROcodone/Acet 5/325 mg [[place] 5-325 mg] 1 tab PO Q4H PRN 5 Days #30 tab PRN Reason: Moderate Pain Home Medications: Vit Calc,Iron,Folic [ Vitamins] 1 each PO DAILY #90 tablet 02/05 [Rx] Cephalexin [Keflex] 500 mg PO TID #20 capsule 04/20/18 [Rx] HYDROcodone/Acet 5/325 mg [[place] 5-325 mg] 1 tab PO Q4H PRN 5 Days #30 tab 04/20 [Rx] Allergies/Adverse Reactions: 3 Allergy/AdvReac Type Severity Reaction Status Date / Time lamotrigine [From Lamictal] Allergy Rash Verified 03/20/18 21:59 Data Procedures and tests throughout hospitalization: Laboratory Tests 04/20/18 04:00 WBC 11.7 H RBC 3.66 L Hgb 11.5 Hct 33.3 L MCV 91.0 MCH 31.4 MCHC 34.5 RDW 14.3 Plt Count 214 MPV 8.4 L Immature Gran % 0.9 Seg Neutrophils % 84.1 Lymphocytes % 6.1 Monocytes % 8.8 Eosinophils % 0.0 Basophils % 0.1 Neutrophils # 9.8 H Lymphocytes # 0.7 Monocytes # 1.0 Eosinophils # 0.0 Basophils # 0.0 Labs on day of discharge: Labs from last 24 hours 04/20/18 04:00 WBC 11.7 H RBC 3.66 L Hgb 11.5 Hct 33.3 L MCV 91.0 MCH 31.4 MCHC 34.5 RDW 14.3 Plt Count 214 MPV 8.4 L Immature Gran % 0.9 Seg Neutrophils % 84.1 Lymphocytes % 6.1 Monocytes % 8.8 Eosinophils % 0.0 Basophils % 0.1 Neutrophils # 9.8 H Lymphocytes # 0.7 Monocytes # 1.0 Eosinophils # 0.0 Basophils # 0.0 Preliminary micro results at discharge 04/20/18 00:37 Blood Culture - Preliminary Peripheral Venipuncture Culture is incubating and being continuously monitored for growth. Final report to follow. 04/20/18 00:49 Blood Culture - Preliminary Peripheral Venipuncture Culture is incubating and being continuously monitored for growth. Final report to follow. Date of admission: 04/19/18 22:56 Primary care physician: PCP NONE Consults: 04/20/18 08:54 Consult to Urology [CONS] Routine Consulting Provider: Urology Shwetha Reason for Consult: left flank pain/history of stones Call Completed: Yes Discharging clinician: Myra Kasper Anticipated date of discharge: 04/20/18 - Patient Status Disposition: Home, Self-Care Condition: Fair Functional capacity at discharge: independent ambulation Overall status at discharge: patient is progressing back to baseline - Discharge Instructions Follow Up With: NONE,PCP [Primary Care Provider] - Thea Salvador DO [Non-Partnered Physician] - - Diet and Activity Activity: increase activity as tolerated Diet: regular diet 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 Time Attestation: Total time spent providing and/or coordinating discharge services: Exam - Constitutional Vitals: Temp Pulse Resp BP Pulse Ox 100.1 F H 122 16 116/56 97 04/20/18 06:55 04/20/18 06:55 04/20/18 06:55 04/20/18 06:55 04/20/18 06:55 General appearance IM: A&O X 3, morbidly obese, pleasant, no acute distress - Respiratory Respiratory exam: Present: CTAB - Cardiovascular Cardiovascular exam IM: Present: RRR, +S1, +S2 - GI/Abdominal GI/Abdominal exam IM: normal bowel sounds, no peritoneal signs - Rectal Rectal exam: deferred - Uterine Tone: Firm - Extremities Exam Extremities exam IM: Present: normal capillary refill, normal inspection, pedal edema, radial pulses palpable and symmetrical - Neurological Exam Neurological exam: alert, CN II-XII intact, normal gait, oriented X3, reflexes normal, no focal deficits, strengths equal and symetr throughout - VTE Reasons for not Prescribing Prophylaxis: Treatment not Indicated - Low risk for VTE
[2018-04-20] MEDS ORDERED: cefTRIAXone 1,000 MG in 0.9 % Sodium Chloride Mini Bag 100 ML IVPB ONE (20:42)
[2018-04-20] MEDS ORDERED: cefTRIAXone 1,000 MG in Water for inj. (sterile) 20 ML 10 ML IVP SCH (21:00)
[2018-04-20] MEDS ORDERED: Aminoglycoside Consult 1 EACH MC ONE (21:26)
== END 2018-04-20 21:27 | disposition home or self-care (01) ==
LOC: 1NENUOBS 18:29 → EMEROO 18:29 → 1NENUOBS 23:27 → 1NENULAB 04-20 01:37
PROVIDERS: ADMIT Advanced Practice Midwife; ATTEND Advanced Practice Midwife

== ENCOUNTER → 2018-06-16 21:10 | Observation (INO) ==
[2018-06-16 20:18] LABS: Amphetamine Screen,Urine Negative ng/mL (Cutoff=1000); Barbiturate Screen,Urine Negative ng/mL (Cutoff=200); Benzodiazepines Screen,Urine Negative ng/mL (Cutoff=200); Cannabinoid Screen,Urine Negative ng/mL (Cutoff = 50); Cocaine Screen,Urine Negative ng/mL (Cutoff= 300); Creatinine,Urine 156 mg/dL; Opiate Screen,Urine Negative ng/mL (Cutoff=300); Phencyclidine Screen,Urine Negative ng/mL (Cutoff=25); Protein/Creatinine Ratio,Urine 0.24 mg/mg (0.00-0.20)
[2018-06-16 20:20] LABS: Basophils % 0.3 %; Eosinophils # 0.1 K/mcL (0.0-0.6); Hematocrit 36.4 % (35.3-44.9); Hemoglobin 12.3 g/dL (11.5-15.4); Immature Granulocytes % 0.8 % (0-4); Lymphocytes # 2.1 K/mcL (0.6-4.6); Lymphocytes % 17.7 %; Mean Corpuscular HGB Conc 33.8 g/dL (31.6-35.5); Mean Corpuscular Hemoglobin 31.1 pg (28.0-33.3); Mean Corpuscular Volume 92.2 fL (83.0-100.0); Mean Platelet Volume 8.8 fL (9.4-12.4); Monocytes # 0.8 K/mcL (0.0-1.3); Monocytes % 6.8 %; Neutrophils # 8.8 K/mcL (1.6-8.9); Platelet Count 297 K/mcL (140-400); Red Blood Count 3.95 M/mcL (3.82-4.97); Segmented Neutrophils % 73.4 %
--- NOTE | 2018-06-16 20:24 | OB/GYN Progress Note ---
Date of Encounter: 06/16/18 Time of Encounter: 20:19 - Assessment and Plan (1) 39 weeks gestation of Current Visit: Yes Status: Acute NST - reactive Urine - pending PIH labs - normal Serial BPs - mild elevation Discharge home with labor and PIH precautions Follow up in office with routine care and PRN . Subjective - Subjective Principal diagnosis: Headaches, vaginal pressure Interval history: Ms Lr is a at 39 weeks gestation that presents to triage with c/o vaginal pressure and headaches. She states she had gestation diabetes with a previous . She denies any problems with this . She states positive movement. She currently denies headache, vision changes, epigastric pain, leaking of fluid, and vaginal bleeding. She is seen by Dr Salvador and states she does not want to deliver at [place]. Antepartum ROS: movement normal Objective - Exam FHR: auscultation normal, category 1 FHR comments: 155 category I tracing. No contractions per monitor Auscultation: bilateral: normal Abdomen: Present: normal appearance, soft, gravid, other (Morbidly Obese ) Uterus: Present: normal. Absent: firm, tenderness Cervical dilation: 1 Cervix effacement: 70 station: Ballottable - Labs Labs: Abnormal lab results Protein/Creatinin Ratio 0.24 mg/mg (0.00-0.20) H 06/16/18 18:40 Urine Total Protein 38 mg/dL (1-14) H 06/16/18 18:40
[2018-06-16 20:37] LABS: Alanine Aminotransferase 8 Units/L (7-52); Aspartate Amino Transferase 10 Units/L (13-39); BUN/Creatinine Ratio 18 (6-26); Blood Urea Nitrogen 6 mg/dL (6-20); Lactate Dehydrogenase 111 Units/L (140-271); Uric Acid 3.9 mg/dL (2.3-7.6); eGFR For Non-African Americans > 60 (> 60)
== END | disposition home or self-care (01) ==
LOC: 1NENULAB
PROVIDERS: ADMIT Advanced Practice Midwife; ATTEND Advanced Practice Midwife